=== PATIENT | male | born 1965 | race Caucasian/White ===

== ENCOUNTER 2024-11-27 13:56 | Inpatient (IN) | payer MEDICARE ==
--- NOTE | 2024-11-27 14:18 | ED ---
General Adult HPI - General Chief complaint: Psychiatric Symptoms Stated complaint: Suicidal Time Seen by Provider: 11/27/24 13:57 Source: EMS Mode of arrival: EMS Limitations: no limitations, language barrier - History of Present Illness Initial comments: Dictation was produced using [employer] dictation software. please excuse any grammatical, word or spelling errors. Chief Complaint: 59-year-old male with homicidal and suicidal ideation History of Present Illness: Patient is a 59-year-old male he is at [facility]. He was sent here by parking lot supervisor of the facility for homicidal and suicidal ideation. Patient states that he feels suicidal if he has to ever go back to [facility]. States that he is also homicidal if anybody gets in his way. Patient states he is currently at [facility] because his son put in there because he cannot take care of himself anymore. Patient Nuys any medical complaints. The ROS documented in this emergency department record has been reviewed and confirmed by me. Those systems with pertinent positive or negative responses have been documented in the HPI. All other systems are other negative and/or noncontributory. - Related Data Allergies Allergy/AdvReac Type Severity Reaction Status Date / Time infliximab Allergy Unknown Verified 11/27/24 15:19 Review of Systems ROS Statement: Those systems with pertinent positive or pertinent negative responses have been documented in the HPI. ROS Other: All systems not noted in ROS Statement are negative. Past Medical History Past Medical History: Atrial Fibrillation, Coronary Artery Disease (CAD), Heart Failure, Respiratory Disorder Past Psychological History: Depression Smoking Status: Current every day smoker Past Alcohol Use History: Abuse General Exam - General Exam Comments Initial Comments: PHYSICAL EXAM: General Impression: Alert and oriented x3, not in acute distress HEENT: Normocephalic atraumatic, extra-ocular movements intact, pupils equal and reactive to light bilaterally, mucous membranes moist. Cardiovascular: Heart regular rate and rhythm Chest: Able to complete full sentences, no retractions, no tachypnea Abdomen: abdomen soft, non-tender, non-distended, no organomegaly Musculoskeletal: Pulses present and equal in all extremities, no peripheral edema Motor: no focal deficits noted Neurological: CN II-XII grossly intact, no focal motor or sensory deficits noted Skin: Intact with no visualized rashes Psych: Normal affect and mood Limitations: no limitations, language barrier Medical Decision Making - Medical Decision Making Was pt. sent in by a medical professional or institution (, PA, BOAT FUELER, urgent care, hospital, or assisted...) When possible be specific @ -Sending by [facility] the staff physician Did you speak to anyone other than the patient for history (EMS, parent, family, police, friend...)? What history was obtained from this source @ -Above Did you review nursing and triage notes (agree or disagree)? Why? @ -I reviewed and agree with nursing and triage notes Were old charts reviewed (outside hosp., previous admission, EMS record, old EKG, old radiological studies, urgent care reports/EKG's, assisted records)? Report findings @ -No old charts were reviewed Differential Diagnosis (chest pain, altered mental status, abdominal pain women, abdominal pain men, vaginal bleeding, musculoskeletal, weakness, fever, dyspnea, syncope, headache, dizziness, GI bleed, back pain, seizure, CVA, palpatations, mental health)? @ -Differential Mental Health: Depression, anxiety, bipolar, psychosis, schizophrenia, borderline personality, situational depression, adjustment disorder, behavioral disorder, brain tumor, m alingering, substance abuse, encephalopathy, medication reaction, dementia, hypothyroidism, degenerative neurologic disorder, lupus.... This is not meant to be all-inclusive list EKG interpreted by me (3pts min.). @ -Not done X-rays interpreted by me (1pt min.). @ -None done CT interpreted by me (1pt min.). @ -None done U/S interpreted by me (1pt. min.). @ -None done What testing was considered but not performed or refused? (CT, X-rays, U/S, labs)? Why? @ -None What meds were considered but not given or refused? Why? @ -None Was smoking cessation discussed for >3mins.? @ -No Were there social determinants of health that impacted care today? How? (Homelessness, low income, unemployed, alcoholism, drug addiction, transportation, low edu. Level, literacy, decrease access to med. care, group home, rehab)? @ -No Was there de-escalation of care discussed even if they declined (Discuss DNR or withdrawal of care, Hospice)? DNR status @ -No What co-morbidities impacted this encounter? (DM, HTN, Smoking, COPD, CAD, Cancer, CVA, ARF, Chemo, Hep., AIDS, mental health diagnosis, sleep apnea, m orbid obesity)? @ -Gravely disabled Was patient admitted / discharged? Hospital course, mention meds given and route, prescriptions, significant lab abnormalities, going to OR and other pertinent info. @ -59-year-old male with history of debility and multiple comorbidities presents to the ER for suicidal ideation and homicidal ideation. Vital signs are stable. Laboratory evaluation obtained. Leukocytosis of 18.1 hemoglobin of 9.2. Patient's hemoglobin is around his baseline. Sodium level 124. Patient given IV fluids. Patient be admitted medically with consultation to psychiatry. Did you discuss the management of the patient with other professionals (professionals i.e. , PA, BOAT FUELER, lab, RT, psych nurse, social work job titles, flatcar whacker, teacher, disabilities services officer, caser shoe parts)? Give summary @ -Discussed with hospitalist for admission Was critical care preformed (if so, how long)? @ -No Undiagnosed new problem with uncertain prognosis? @ -No Drug Therapy requiring intensive monitoring for toxicity (Heparin, Nitro, Insulin, Cardizem)? @ -No Were any procedures done? @ -No Diagnosis/symptom? Acute, or Chronic, or Acute on Chronic? Uncomplicated (without systemic symptoms) or Complicated (systemic symptoms)? @ -Hyponatremia, suicidal/homicidal ideation Side effects of treatment? @ -No Exacerbation, Progression, or Severe Exacerbation? @ -No Poses a threat to life or bodily function? How? (Chest pain, USA, VT, pneumonia, PE, COPD, DKA, ARF, appy, cholecystitis, CVA, Diverticulitis, Homicidal, Suicidal, threat to staff... and all critical care pts) @ -yes - Lab Data Result diagrams: 11/27/24 14:46 11/27/24 14:46 Lab Results 11/27/24 11/27/24 Range/Units 14:46 14:46 WBC 18.1 H (3.8-10.6) k/uL RBC 4.26 L (4.30-5.90) m/uL Hgb 9.2 L (13.0-17.5) gm/dL Hct 32.3 L (39.0-53.0) % MCV 75.9 L (80.0-100.0) fL MCH 21.7 L (25.0-35.0) pg MCHC 28.6 L (31.0-37.0) g/dL RDW 19.2 H (11.5-15.5) % Plt Count 615 H (150-450) k/uL MPV 7.1 Neutrophils % 88 % Lymphocytes % 7 % Monocytes % 4 % Eosinophils % 0 % Basophils % 0 % Neutrophils # 15.9 H (1.3-7.7) k/uL Lymphocytes # 1.2 (1.0-4.8) k/uL Monocytes # 0.8 (0-1.0) k/uL Eosinophils # 0.0 (0-0.7) k/uL Basophils # 0.0 (0-0.2) k/uL Hypochromasia Marked Poikilocytosis Slight Anisocytosis Slight Microcytosis Moderate Sodium 124 L (137-145) mmol/L Potassium 4.8 (3.5-5.1) mmol/L Chloride 89 L (98-107) mmol/L Carbon Dioxide 31 H (22-30) mmol/L Anion Gap 4 mmol/L BUN 15 (9-20) mg/dL Creatinine 0.46 L (0.66-1.25) mg/dL Est GFR (CKD-EPI)AfAm >90 (>60 ml/min/1.73 sqM) Est GFR (CKD-EPI)NonAf >90 (>60 ml/min/1.73 sqM) Glucose 165 H (74-99) mg/dL Calcium 8.4 (8.4-10.2) mg/dL Disposition Clinical Impression: Suicidal ideation, Hyponatremia Disposition: ADMITTED IP TO THIS HOSP Condition: Fair Referrals: Zoya Sheets MD [Primary Care Provider] - 1-2 days Decision Time: 15:32
[2024-11-27 15:07] LABS: African American GFR (CKD) >90 (>60 ml/min/1.73 sqM); Anion Gap 4 mmol/L; Blood Urea Nitrogen 15 mg/dL (9-20); Calcium 8.4 mg/dL (8.4-10.2); Carbon Dioxide 31 mmol/L (22-30); Chloride 89 mmol/L (98-107); Glucose 165 mg/dL (74-99); Non-African American GFR(CKD) >90 (>60 ml/min/1.73 sqM); Potassium 4.8 mmol/L (3.5-5.1); Sodium 124 mmol/L (137-145)
[2024-11-27] MEDS ORDERED: NALOXONE 0.4 MG/ML 1 ML VIAL IV PRN (15:27)
[2024-11-27] MEDS: SODIUM CHLORIDE 0.9% 1,000 ML IV STA ×2 (16:09→16:38)
[2024-11-27] MEDS: HYDROcodone/APAP 5-325MG 1 EACH TAB PO PRN (16:42)
--- NOTE | 2024-11-27 16:52 | XR ---
EXAMINATION TYPE: XR chest 2V DATE OF EXAM: 11/27/2024 4:31 PM COMPARISON: None. CLINICAL INDICATION: Male, 59 years old with history of leukocytosis, TECHNIQUE: Frontal and lateral views of the chest are obtained. FINDINGS: There is patchy infiltrate right lower lobe with bilateral pleural effusions. There is pulm onary venous congestion and hazy right perihilar density. There is also cardiomegaly. Findings are li ananda reflective of congestive failure with acute pulmonary edema although infiltrates of other etiolo gy including pneumonia are not excluded. Hilar and mediastinal structures are unremarkable. IMPRESSION: Correlate with BNP for CHF. Pneumonia not excluded. Correlate clinically and progress christi dies recommended. [facility], , 11/27/2024 4:49 PM
[2024-11-27] MEDS ORDERED: ACETAMINOPHEN TAB 325 MG TAB PO PRN (20:22)
[2024-11-27] MEDS: HALOPERIDOL LACTATE 5 MG/ML 1 ML VIAL IM PRN (20:46)
[2024-11-27] MEDS: LORazepam 1 MG/0.5 ML VIAL IM PRN (20:47)
[2024-11-27] MEDS: DIVALPROEX 500 MG TABLET.DR PO SCH (20:53)
[2024-11-27] MEDS: HYDROcodone/APAP 7.5-325MG 1 EACH TAB PO PRN (20:53)
[2024-11-27] MEDS: ATORVASTATIN 40 MG TAB PO SCH (20:53)
[2024-11-27] MEDS: QUEtiapine 25 MG TAB PO SCH (20:57)
[2024-11-28] MEDS: GABAPENTIN 300 MG CAP PO SCH (06:14)
[2024-11-28] MEDS: METOPROLOL SUCCINATE (ER) 25 MG TAB.ER.24H PO SCH (06:14)
[2024-11-28] MEDS: FOLIC ACID 1 MG TAB PO SCH (06:14)
[2024-11-28] MEDS: PANTOPRAZOLE 40 MG TABLET PO SCH (08:27)
[2024-11-28] MEDS: THIAMINE 100 MG TAB PO SCH (08:27)
[2024-11-28] MEDS: CLOPIDOGREL 75 MG TAB PO SCH (08:27)
[2024-11-28] MEDS: CYANOCOBALAMIN 500 MCG TAB PO SCH (08:27)
[2024-11-28] MEDS: ASPIRIN 81 MG PO SCH (08:27)
[2024-11-28] MEDS: FERROUS SULFATE 325 MG TAB PO SCH (10:00)
[2024-11-28] MEDS: NICOTINE 21MG/24HR PATCH TRANSDERM SCH (10:00)
[2024-11-28] MEDS ORDERED: VALPROIC ACID ORAL SOLN 250 MG/5 ML CUP PO SCH (13:45)
--- NOTE | 2024-11-28 13:46 | P.CN ---
Psychiatric Consult - . Consult date: 11/28/24 Consult:: 11/28/24 12:55 IDENTIFYING DATA: This patient is a 59-year-old male coming from [facility] REASON FOR REFERRAL: Psychiatry was consulted for SI/HI HISTORY OF PRESENT ILLNESS: The patient presented [facility] the [facility], staff reported the patient has been threatening suicidal and homicidal ideations. Patient was found to have a sodium of 124, WBCs were elevated to 18.1 and absolute neutrophil count was 15.9. Patient apparently has been telling nurse and medical doctor that he just wants to go home and drink and does not care and wants discharge. Patient was seen today had a one-to-one sitter at his side. He was fairly concrete, irritable and argumentative with press writer. He was very short with his answers, claims that he does not want to return back to [facility]. States that "would rather be " claims that he has been there for about a month now and "hates it". He was not able to elaborate further was a very poor historian poor impulse control. States that he wants to be discharged back home, press writer asked what he would do and states that so I can drink is much as I can". He claims that he is feeling depressed since being in the hospital, had restraints last night and as needed medications for agitation. Patient denies any auditory, visual hallucinations and denies any paranoia or delusions. Patient became upset with press writer asking him questions and told him "get me my phone so I can get out!" And ended the interview. Patient was fairly focused on obtaining Xanax from press writer. PAST PSYCHIATRIC HISTORY: Patient has unknown psychiatric history. Patient is currently on Depakote 500 mg 3 times daily and also Seroquel 25 mg nightly. Unable to gather further psychiatric history. Past Medical History: Atrial Fibrillation, Coronary Artery Disease (CAD), Heart Failure, Respiratory Disorder Past Psychological History: Depression Smoking Status: Current every day smoker Past Alcohol Use History: Abuse ALLERGIES: as per EMR. CHEMICAL DEPENDENCY HISTORY: Patient claims that he drinks alcohol as noted above. FAMILY PSYCHIATRIC/SUBSTANCE USE HISTORY: Unable to assess SOCIAL HISTORY: Patient currently lives at [facility], unsure if he has a guardian or not. Unable to give further social history. MENTAL STATUS EXAM: General Appearance: Patient appears to be thin, laying in bed, stated age is alert, agitated, irritable. Patient appears to have fair hygiene and grooming wearing hospital gown with poor eye contact. Behavior: Agitated, demanding Speech: Patient's speech is fluent and nonpressured. Loud at times Mood/Affect: Patient reports their mood is "depressed", affect is congruent and labile Suicidality/Homicidality: Patient denies having any suicidal or homicidal ideation intent or plan. Perceptions: Patient denies any visual hallucinations and denies any auditory hallucinations Though content/process: Focused on being discharged, poor impulse control. Poverty of content Memory and concentration: Unable to assess Judgment and insight: Poor/impulsive IMPRESSIONS: Mood disorder unspecified Alcohol use disorder PLAN: -At this time patient DOES meet criteria for inpatient psychiatric admission once patient is medically cleared. -Patient DOES NOT have decision making capacity at this time and is unable to reason through and communicate/appreciate the risks, benefits and alternatives to treatment. -Delirium precautions recommended with patient including - avoiding use of narcotics and CERAMIC DESIGN ENGINEER sedatives, limit anticholinergic medications when possible, frequent re-orientation, minimize use of restraints, open window shades during the day and close them at night -Would recommend the following medication changes/additions: Increase Seroquel to 50 mg nightly for mood stabilization/sleep, continue with home dose of Depakote 500 mg 3 times daily for mood stabilization/aggression. -Continue 1:1 sitter for safety -Cannot leave AMA at this time. Patient will need a petition and certification if attempting to leave AMA. -When medically stable, patient is eligible for transfer to a psych bed when a vailable. -Communicated plan to patient's nurse -Psychiatry will sign off at this time -Please contact with any questions. 11/28/24 13:40 11/28/24 13:43
[2024-11-28] MEDS ORDERED: HYDROcodone/APAP 5-325MG 1 EACH TAB PO PRN (14:29)
[2024-11-28] MEDS ORDERED: polyethylene glycoL 3350 17 GM POWD.PACK PO PRN (14:41)
[2024-11-28] MEDS ORDERED: NITROGLYCERIN SL TABS 0.4 MG TAB SUBLINGUAL PRN (14:41)
[2024-11-28] MEDS: HYDROcodone/APAP 7.5-325MG 1 EACH TAB PO PRN (14:46)
[2024-11-28] MEDS: LORazepam 1 MG TAB PO PRN (14:47)
[2024-11-28] MEDS: predniSONE 10 MG TAB PO SCH (15:11)
[2024-11-28] MEDS: HYDROmorphone 0.5 MG/0.5 ML SYRINGE IVP PRN (15:15)
--- NOTE | 2024-11-28 16:49 | CT ---
EXAMINATION TYPE: CT brain wo con DATE OF EXAM: 11/28/2024 4:40 PM COMPARISON: None. CLINICAL INDICATION: Male, 59 years old with history of stroke, AMS. Stroke like symptoms. best image s possible due to pts kyphotic level. TECHNIQUE: Brain: Axial CT images of the brain were obtained with coronal and sagittal reformats created and rev iewed. Contrast used: None. Oral contrast used: None. CT DLP: 1328.4 mGycm, Automated exposure control for dose reduction was used. FINDINGS: Examination limited due to streak artifact. Brain: Extra-axial spaces: No abnormal extra-axial fluid collections. Ventricular system: Dilatation in proportion to cerebral atrophy. Cerebral parenchyma: No acute intraparenchymal hemorrhage or mass effect. The rebollar-white junction is well differentiated. Scattered hypoattenuating areas are seen within the white matter. Possible old infarct in the left basal ganglia region. Cerebellum: Unremarkable. Mass effect: No evidence of midline shift. Intracranial vasculature: unremarkable Soft tissues: Normal. Calvarium/osseous structures: No depressed skull fracture. Paranasal sinuses and mastoid air cells: Mild scattered paranasal sinus disease. Visualized orbits: Orbital contents are intact. IMPRESSION: No acute intracranial process. Consider MRI for further evaluation if there is persistent clinical co ncern for underlying ischemic changes. [facility], , 11/28/2024 4:47 PM
[2024-11-28] MEDS: HEPARIN SODIUM,PORCINE 5,000 UNIT/ML 1 ML VIAL SQ SCH (21:03)
[2024-11-28] MEDS: QUEtiapine 50 MG TAB PO SCH (21:04)
[2024-11-28] MEDS: SODIUM CHLORIDE 0.9% 1,000 ML IV SCH (22:16)
[2024-11-28 22:20] LABS: Influenza A Not Detected (Not Detectd); Influenza B Not Detected (Not Detectd); RSV Not Detected (Not Detectd)
--- NOTE | 2024-11-29 01:14 | HP ---
HISTORY AND PHYSICAL CHIEF COMPLAINT: Homicidal ideation, suicidal ideations, and hyponatremia. HISTORY OF PRESENT ILLNESS: This 59-year-old gentleman with a past medical history of multiple medical problems, admitted with significant homeless and suicidal ideations. The patient has severe hyponatremia. Apparently, the patient is unable to take care of himself and the patient has significant alcohol issues also. Psychiatry has seen the patient and recommended transfer once the patient is stabilized. There is no history of fever, rigors, or chills. PAST MEDICAL HISTORY: Reviewed include atrial fibrillation, CAD, CHF. The rest of the chart is also reviewed. HOME MEDICATIONS: Reviewed include Depakote, dose and rest of medications reviewed. ALLERGIES: Infliximab. FAMILY HISTORY: No history of heart disease. SOCIAL HISTORY: Alcohol abuse and smoking. REVIEW OF SYSTEMS: 14-point review is negative except mentioned earlier. PHYSICAL EXAM: VITAL SIGNS: Pulse 69, blood pressure 133/65, respirations 17. CHEST: Clear to auscultation. CARDIOVASCULAR: S1 and S2. ABDOMEN: Soft. NERVOUS SYSTEM: No focal deficit. SKIN: No ulcer, rash, bleeding. JOINTS: No active deforming arthropathy. The patient is complaining of back pain also. LABORATORY DATA: Reviewed. ASSESSMENT: 1. Severe hyponatremia possibly hypovolemic hyponatremia. 2. Suicidal and homicidal ideations. 3. History of EtOH. 4. Severe back pain and degenerative joint disease. 5. Atrial fibrillation. 6. History of coronary artery disease. 7. History of congestive heart failure. RECOMMENDATIONS AND DISCUSSION: I recommend to continue current management and treatment otherwise, I would also recommend CT of the brain to complete the workup and IV fluids 0.9. Resume the home medications. Repeat labs in the morning. Once the patient is stabilized, the patient may be transferred to psych for further evaluation and treatment. MMODL / IJN: [id number] /
[2024-11-29 04:45] LABS: Glucose,Whole Blood 108 mg/dL (70-110)
[2024-11-29] MEDS: MELOXICAM 7.5 MG TAB PO SCH (05:29)
[2024-11-29] MEDS ORDERED: NON FORMULARY DRUG (Lactose-Reduced Food [Ensure Plus] 237 ML Ml) PO SCH (09:00)
[2024-11-29] MEDS: SYMBICORT 80-4.5 MCG INHALER INHALATION SCH (09:23)
[2024-11-29] MEDS: TIOTROPIUM 2.5 MCG INHALER INHALATION SCH (09:23)
[2024-11-29 09:33] LABS: Basophils # (A) 0.03 X 10*3/uL (0.00-0.10); Basophils % (A) 0.4 %; Eosinophils # (A) 0.15 X 10*3/uL (0.04-0.35); Eosinophils % (A) 1.9 %; HCT 35.5 % (39.6-50.0); HGB 12.2 g/dL (13.0-17.0); Lymphocytes # (A) 1.56 X 10*3/uL (0.90-5.00); Lymphocytes % (A) 19.9 %; MCH 33.5 pg (27.0-32.0); MCHC 34.4 g/dL (32.0-37.0); MCV 97.5 FL (80.0-97.0); Mean Platelet Volume 10.4 FL (9.5-12.2); Monocytes # (A) 0.71 X 10*3/uL (0.20-1.00); Monocytes % (A) 9.1 %; NRBC Per 100 WBC 0 X 10*3/uL (0.00-0.01); Neutrophils # (A) 5.27 X 10*3/uL (1.80-7.70); Neutrophils % (A) 67.3 %; Platelet Count 183 X 10*3/uL (140-440); RBC 3.64 X 10*6/uL (4.40-5.60); RDW 19.5 % (11.5-14.5); WBC 7.83 X 10*3/uL (4.50-10.00)
[2024-11-29 10:18] LABS: ALT 31 U/L (10-49); AST 17 U/L (14-35); Albumin 2.9 g/dL (3.8-4.9); Albumin/Globulin Ratio 1.16 Ratio (1.60-3.17); Alkaline Phosphatase 89 U/L (41-126); BUN/Creat Ratio 33.17 Ratio (12.00-20.00); Blood Urea Nitrogen 19.9 mg/dL (9.0-27.0); Calcium 8.5 mg/dL (8.7-10.3); Carbon Dioxide 25.6 mmol/L (21.6-31.8); Chloride 102 mmol/L (96-109); Globulin 2.5 g/dL (1.6-3.3); Glucose 106 mg/dL (70-110); Potassium 4.7 mmol/L (3.5-5.5); Sodium 137 mmol/L (135-145); Total Bilirubin 0.2 mg/dL (0.3-1.2); Total Protein 5.4 g/dL (6.2-8.2)
[2024-11-29] MEDS: MULTIVITAMINS, THERA 1 EACH TAB PO SCH (12:16)
--- NOTE | 2024-11-30 01:32 | PN ---
PROGRESS NOTE DATE OF SERVICE: 11/29/2024 SUBJECTIVE: This is a 59-year-old gentleman, who was admitted with severe hyponatremia, who also had some suicidal and homicidal ideations also. The patient also had back pain and had difficulty in walking also. CT of the brain did not show any acute abnormality. PHYSICAL EXAMINATION: VITAL SIGNS: Pulse 69, blood pressure 130/70, respirations 17. CHEST: Clear to auscultation. CARDIOVASCULAR: S1 and S2. ABDOMEN: Soft. BACK: Some back pain present. LABORATORY DATA: Hemoglobin 12.2. Rest of the labs are noted. ASSESSMENT: 1. Severe hyponatremia, possible hypovolemic hyponatremia. 2. Suicidal and homicidal ideations. 3. History of EtOH. 4. Back pain and severe degenerative joint disease. 5. Atrial fibrillation. 6. Coronary artery disease. 7. History of congestive heart failure. RECOMMENDATIONS AND DISCUSSION: Recommended to continue current management and continue symptomatic treatment otherwise. Repeat labs. Continue the pain medication. Increase ambulation. Once the sodium has improved, the patient might be able to be discharged and transferred to psych floor within the next 24 hours. MMODL / IJN: [id number] /
[2024-11-30 08:40] LABS: BUN/Creat Ratio 40.67 Ratio (12.00-20.00); Blood Urea Nitrogen 24.4 mg/dL (9.0-27.0); Chloride 103 mmol/L (96-109); Glucose 110 mg/dL (70-110); Potassium 4.8 mmol/L (3.5-5.5); Sodium 137 mmol/L (135-145)
[2024-11-30 08:41] LABS: ALT 66 U/L (10-49); AST 27 U/L (14-35); Albumin 2.6 g/dL (3.8-4.9); Albumin/Globulin Ratio 1.13 Ratio (1.60-3.17); Alkaline Phosphatase 103 U/L (41-126); Calcium 8.2 mg/dL (8.7-10.3); Carbon Dioxide 27.3 mmol/L (21.6-31.8); Globulin 2.3 g/dL (1.6-3.3); Total Bilirubin 0.2 mg/dL (0.3-1.2); Total Protein 4.9 g/dL (6.2-8.2)
[2024-11-30 09:07] LABS: Basophils # (A) 0.03 X 10*3/uL (0.00-0.10); Basophils % (A) 0.4 %; Eosinophils # (A) 0.07 X 10*3/uL (0.04-0.35); HCT 33.2 % (39.6-50.0); HGB 9.9 g/dL (13.0-17.0); Lymphocytes # (A) 1.57 X 10*3/uL (0.90-5.00); Lymphocytes % (A) 21.8 %; MCH 29.1 pg (27.0-32.0); MCHC 29.8 g/dL (32.0-37.0); MCV 97.6 FL (80.0-97.0); Mean Platelet Volume 10.3 FL (9.5-12.2); Monocytes # (A) 0.72 X 10*3/uL (0.20-1.00); NRBC Per 100 WBC 0 X 10*3/uL (0.00-0.01); Neutrophils # (A) 4.73 X 10*3/uL (1.80-7.70); Neutrophils % (A) 65.6 %; Platelet Count 164 X 10*3/uL (140-440); RDW 19.1 % (11.5-14.5); WBC 7.21 X 10*3/uL (4.50-10.00)
--- NOTE | 2024-11-30 15:37 | P.DS ---
Providers Date of admission: 11/27/24 15:16 Expected date of discharge: 11/30/24 Attending physician: Nader Lundy Consults: 11/27/24 15:20 Consult Physician Routine Consulting Provider: Psychiatry - MPH Psychiatry Consult Reason/Comments: SI/HI Do you want consulting provider notified?: Yes Primary care physician: Zoya Sheets Hospital Course: Final diagnosis Severe hyponatremia, hypovolemic hyponatremia, improved Suicidal and homicidal ideations History of EtOH Severe back pain with severe degenerative joint disease History of atrial fibrillation, currently rate controlled Coronary artery disease History of congestive heart failure, not in exacerbation History of depression Continued ongoing nicotine abuse GI prophylaxis DVT prophylaxis Full code Discharge disposition Patient is being discharged in a stable condition with guarded prognosis to 3 [facility] psychiatric unit for further psychiatric care and evaluation. Patient will follow-up with Dr. Sheets in the outpatient setting upon discharge. Patient is to continue with current medications and outpatient [place] [facility] [place] scheduled. Total time taken is greater than 35 minutes. Hospital course This is a 59-year-old male who was recently admitted with severe hyponatremia also reporting some suicidal and homicidal ideations apparently per staff. Patient having difficulty in walking with back pain and significant weakness. Patient reports he was at [facility] for approximately 1 month receiving PT/OT therapy and does not want to return there. Patient reported to having some comments of wanting to hurt himself although he denies reports "I said some stupid shit and I am really sorry I did". When asking if he is suicidal or homicidal patient denies and reports he does not want to hurt himself. Patient was evaluated by psychiatry reporting he is not able to make his own sound decisions and reporting he was meeting criteria for inpatient. Patient is medically stable for transfer to 3 W. once a bed becomes available. Currently no reports of chest pain, shortness of breath, or palpitations. Patient is afebrile. No reports of nausea or vomiting and patient is tolerating diet. Patient will be going to 3 W. inpatient psychiatric unit for further evaluation. Physical exam: Gen: This is a 59-year-old male who is awake, alert and oriented x 2-3, baseline, well-developed, elderly appearing, ill-appearing HEENT: Head is atraumatic, normocephalic. Pupils equal, round. Sclerae is anicteric. NECK: Supple. No JVD. No lymphadenopathy. No thyromegaly. LUNGS: Diminished breath sounds bilaterally otherwise clear to auscultation. No wheezes or rhonchi. No intercostal retractions. HEART: S1, S2 are muffled ABDOMEN: Soft. Bowel sounds are present. No masses. No tenderness. EXTREMITIES: No pedal edema. No calf tenderness. Bilateral lower extremity swelling, chronic, extremely weak with gait dysfunction noted NEUROLOGICAL: Patient is awake, alert and oriented x 23 baseline. Cranial nerves 2 through 12 are grossly intact. Diffusely weak Please refer to medication reconciliation sheet for a list of medications. The impression and plan of care has been dictated by Carli Rosen, Nurse Practitioner as directed. Dr. Stefany MD I have performed a history and examination and MDM of this patient, discussed the same with the dictator, and agree with the dictator's assessment and plan as written ,documented as a scribe. Based on total visit time, I have performed more than 50% of the visit. Patient Condition at Discharge: Fair Plan - Discharge Summary New Discharge Prescriptions: New Nicotine 21Mg/24Hr Patch [Habitrol] 1 patch TRANSDERM DAILY patch Heparin Sodium,Porcine (1 ml) [Heparin Sodium] 5,000 unit SQ Q12HR each Multivitamins, Thera [Multivitamin (formulary)] 1 each PO DAILY@1200 tab Acetaminophen Tab [Tylenol] 650 mg PO Q6HR PRN tab PRN Reason: Fever and/ or Mild Pain haloperidoL [Haldol] 5 mg PO Q6HR PRN tab PRN Reason: Agitation QUEtiapine [SEROquel] 50 mg PO HS tab Continue Fluticasone/Umeclidin/Vilanter [Trelegy Ellipta 100-62.5-25] 1 puff INHALATION RT-DAILY@0600 Thiamine [Vitamin B-1] 100 mg PO DAILY Pantoprazole [Protonix] 40 mg PO DAILY Lactose-Reduced Food [Ensure Plus] 1 can PO DAILY Folic Acid 1 mg PO DAILY@0600 Ferrous Sulfate [Iron (65 MG Elemental)] 325 mg PO DAILY Cyanocobalamin [Vitamin B-12] 500 mcg PO DAILY Aspirin EC [Ecotrin Low Dose] 81 mg PO DAILY Divalproex Sodium [Depakote] 500 mg PO TID Atorvastatin [Lipitor] 40 mg PO HS polyethylene glycoL 3350 [Miralax] 17 gm PO DAILY PRN PRN Reason: Constipation Nitroglycerin Sl Tabs [Nitrostat] 0.4 mg SUBLINGUAL Q5M PRN PRN Reason: Chest Pain HYDROcodone/APAP 7.5-325MG [[place] 7.5-325] 1 tab PO TID PRN PRN Reason: Pain Gabapentin [Neurontin] 300 mg PO BID@0600,1700 predniSONE See Taper PO DAILY Metoprolol Succinate (ER) [Toprol XL] 25 mg PO DAILY@0600 Clopidogrel [Plavix] 75 mg PO DAILY Celecoxib [CeleBREX] 200 mg PO DAILY@0600 Discontinued HYDROcodone/APAP 7.5-325MG [[place] 7.5-325] 1 tab PO QID ALPRAZolam [Xanax] 0.25 mg PO Q12H PRN PRN Reason: Anxiety QUEtiapine [SEROquel] 25 mg PO HS Discharge Medication List Aspirin EC [Ecotrin Low Dose] 81 mg PO DAILY 11/27/24 [History] Atorvastatin [Lipitor] 40 mg PO HS 11/27/24 [History] Celecoxib [CeleBREX] 200 mg PO DAILY@0600 11/27/24 [History] Clopidogrel [Plavix] 75 mg PO DAILY 11/27/24 [History] Cyanocobalamin [Vitamin B-12] 500 mcg PO DAILY 11/27/24 [History] Divalproex Sodium [Depakote] 500 mg PO TID 11/27/24 [History] Ferrous Sulfate [Iron (65 MG Elemental)] 325 mg PO DAILY 11/27/24 [History] Fluticasone/Umeclidin/Vilanter [Trelegy Ellipta 100-62.5-25] 1 puff INHALATION RT-DAILY@0600 11/27/24 [History] Folic Acid 1 mg PO DAILY@0600 11/27/24 [History] Gabapentin [Neurontin] 300 mg PO BID@0600,1700 11/27/24 [History] HYDROcodone/APAP 7.5-325MG [[place] 7.5-325] 1 tab PO TID PRN 11/27/24 [History] Lactose-Reduced Food [Ensure Plus] 1 can PO DAILY 11/27/24 [History] Metoprolol Succinate (ER) [Toprol XL] 25 mg PO DAILY@0600 11/27/24 [History] Nitroglycerin Sl Tabs [Nitrostat] 0.4 mg SUBLINGUAL Q5M PRN 11/27/24 [History] Pantoprazole [Protonix] 40 mg PO DAILY 11/27/24 [History] Thiamine [Vitamin B-1] 100 mg PO DAILY 11/27/24 [History] polyethylene glycoL 3350 [Miralax] 17 gm PO DAILY PRN 11/27/24 [History] predniSONE See Taper PO DAILY 11/27/24 [History] Acetaminophen Tab [Tylenol] 650 mg PO Q6HR PRN tab 11/30/24 [Rx] Heparin Sodium,Porcine (1 ml) [Heparin Sodium] 5,000 unit SQ Q12HR each 11/30/24 [Rx] Multivitamins, Thera [Multivitamin (formulary)] 1 each PO DAILY@1200 tab 11/30/24 [Rx] Nicotine 21Mg/24Hr Patch [Habitrol] 1 patch TRANSDERM DAILY patch 11/30/24 [Rx] QUEtiapine [SEROquel] 50 mg PO HS tab 11/30/24 [Rx] haloperidoL [Haldol] 5 mg PO Q6HR PRN tab 11/30/24 [Rx] Follow up Appointment(s)/Referral(s): [facility], [NON-STAFF] - As Needed ([facility] will call you to schedule your in home visits. ) Zoya Sheets MD [Primary Care Provider] - 1-2 days [facility] [REFERRING] - As Needed (Call to see if you qualify for choreworker services. ) Activity/Diet/Wound Care/Special Instructions: Patient medically stable for transfer to 3 W. psych unit Follow-up with primary care provider on discharge Follow-up with mental health outpatient Arrange for outpatient services including home care Discharge Disposition: TRANSFER TO PSYCH HOSP/UNIT
[2024-12-01] MEDS ORDERED: QUEtiapine 50 MG TAB PO PRN (13:46)
--- NOTE | 2024-12-01 13:51 | P.PN ---
Progress Note - Text Progress Note Date: 12/01/24 Interval history: Patient was seen today for psychiatric follow-up. Patient was seen at the bed side today, he continues to have a one-to-one sitter. Patient was more pleasant today with life insurance underwriter, less irritability, improving attention span. He claims that he is doing better overall denies any depression or anxiety. States that he has been sleeping a bit better, appetite is improving. Claims that he wants to live for his family and also his future. He claims that he is possibly going to a different rehab. He was alert and oriented x 3 today. No aggression or agitation today. Not responding to internal stimuli. Appears to have improvement in his insight and judgment today. He was agreeable to continuing with the medications. Denying any suicidal homicidal ideations intent or plan denying any auditory or visual hallucinations. MENTAL STATUS EXAM: General Appearance: Patient appears to be thin, laying in bed, stated age is alert, more cooperative today. Patient appears to have fair hygiene and grooming wearing hospital gown with improving eye contact. Behavior: More cooperative today Speech: Patient's speech is fluent and nonpressured. Mood/Affect: Patient reports their mood is "ok", affect is congruent and improving affect Suicidality/Homicidality: Patient denies having any suicidal or homicidal ideation intent or plan. Perceptions: Patient denies any visual hallucinations and denies any auditory hallucinations Though content/process: Patient is more goal oriented, not endorsing delusions or paranoia. More future oriented today Memory and concentration: Unable to assess Judgment and insight: improving significantly IMPRESSIONS: Mood disorder unspecified Alcohol use disorder PLAN: -At this time patient DOES NOT meet criteria for inpatient psychiatric admission -Delirium precautions recommended with patient including - avoiding use of narcotics and DIE SETTER sedatives, limit anticholinergic medications when possible, frequent re-orientation, minimize use of restraints, open window shades during the day and close them at night -Would recommend the following medication changes/additions: Seroquel 50 mg scheduled nightly for mood stabilization/sleep + added daytime seroquel dose 50 mg prn for agitation, continue with home dose of Depakote 500 mg 3 times daily for mood stabilization/aggression. -Can discontinue 1:1 sitter at this time and patient is no longer endorsing suicidal homicidal ideations, improving psychiatric symptoms and improving i nsight and judgment -Communicated plan to patient's nurse -please provide outpatient mental health follow up resources -Psychiatry will sign off at this time -Please contact with any questions.
[2024-12-02] MEDS ORDERED: ZINC OXIDE PASTE (Z-GUARD) 1 APPLIC TOPICAL PRN (06:00)
--- NOTE | 2024-12-02 06:03 | P.PN ---
Subjective Progress Note Date: 12/01/24 This is a 59-year-old male who was recently admitted from [facility] with suicidal and homicidal ideations. Patient has been at [facility] for approximately a month per patient as he has been significantly weak inability to walk and currently is two-person assist per nursing staff. Awaiting updated PT/OT therapy notes. Patient reports he does not want to return to [facility] and was evaluated by psychiatry recommending inpatient psych once medically stable. Attempted to discharge to inpatient psych on 3 W. and it was reported that patient does not meet criteria and that patient may possibly need geriatric psych. Will ask psychiatry to reevaluate as patient is not reporting any suicidal or homicidal ideation and reports he says this out of context. Patient is significantly weak and would benefit from rehab for continued strength and mobility. Patient does not want to return to [facility] and per case management patient has been declined on return to [facility]. Review of systems: Constitutional: No reports of fatigue, fever, or chills Cardiovascular: No reports of chest pain or palpitations Respiratory: No reports of shortness of breath or cough GI: reports of nausea, no reports of of vomiting, : No reports of dysuria or retention Neurovascular: reports of generalized weakness, All medications have been reviewed PHYSICAL EXAMINATION: GENERAL: The patient is alert and oriented x2-3, baseline well developed, well nourished. Appears older than stated age HEENT: Pupils are round and equally reacting to light. EOMI. no scleral icterus. No conjunctival pallor. Normocephalic, atraumatic. No pharyngeal erythema. No thyromegaly. CARDIOVASCULAR: S1 and S2 muffled PULMONARY: diminished breath sounds bilaterally with no wheezing or rhonchi noted. ABDOMEN: soft. Nontender on exam. obese. non-distended, normoactive bowel sounds. No palpable organomegaly. MUSCULOSKELETAL: No joint swelling or deformity. EXTREMITIES: No cyanosis, clubbing, or pedal edema. NEUROLOGICAL: Gross neurological examination did not reveal any focal deficits. Diffuse weakness SKIN: No rashes. Assessment: Severe hyponatremia, hypovolemic hyponatremia, improved Suicidal and homicidal ideations History of EtOH Severe back pain with severe degenerative joint disease History of atrial fibrillation, currently rate controlled Coronary artery disease History of congestive heart failure, not in exacerbation History of depression Continued ongoing nicotine abuse GI prophylaxis DVT prophylaxis Full code Plan: Recommend to continue with current medications and management and was reevaluated by psychiatry and cleared the patient for discharge with outpatient follow-up with [facility] Patient continues with significant weakness and evaluated by physical therapy recommending rehab and patient is agreeable with son at the bedside. Case management following as patient is unable to return to [facility] and place referrals to multiple other facilities. Continue with appropriate home medications Encourage increase activity as tolerated and sitting up in the chair more frequently Possible discharge planning in the next 24 to 48 hours [facility] The impression and plan of care has been dictated by Carli Rosen, Nurse Practitioner as directed. Dr. Stefany MD I have performed a history and examination and MDM of this patient, discussed the same with the dictator, and agree with the dictator's assessment and plan as written ,documented as a scribe. Based on total visit time, I have performed more than 50% of the visit. Objective - Vital Signs Vital signs: Vital Signs Temp 97.3 F L 11/30/24 07:18 Pulse 71 11/30/24 07:18 Resp 18 11/30/24 07:18 BP 122/77 11/30/24 07:18 Pulse Ox 100 11/30/24 07:18 FiO2 Intake & Output 11/29/24 11/30/24 11/30/24 18:59 06:59 18:59 Intake Total 2970 Output Total 200 1125 Balance -200 1845 Intake: Oral 2970 Output: Urine 200 1125 Other: Voiding Method External Catheter # Voids 4 - Labs CBC & Chem 7: 11/30/24 03:42 11/30/24 03:42 Labs: Abnormal Lab Results - Last 24 Hours (Table) 11/29/24 11/30/24 11/30/24 Range/Units 05:42 03:42 03:42 RBC 3.40 L (4.40-5.60) X 10*6/uL Hgb 9.9 L (13.0-17.0) g/dL Hct 33.2 L (39.6-50.0) % MCV 97.6 H (80.0-97.0) FL MCHC 29.8 L (32.0-37.0) g/dL RDW 19.1 H (11.5-14.5) % Immature Gran # 0.09 H (0.00-0.04) X 10*3/uL BUN/Creatinine Ratio 33.17 H 40.67 H (12.00-20.00) Ratio Calcium 8.5 L 8.2 L (8.7-10.3) mg/dL Total Bilirubin 0.2 L 0.2 L (0.3-1.2) mg/dL ALT 66 H (10-49) U/L Total Protein 5.4 L 4.9 L (6.2-8.2) g/dL Albumin 2.9 L 2.6 L (3.8-4.9) g/dL Albumin/Globulin Ratio 1.16 L 1.13 L (1.60-3.17) Ratio Microbiology - Last 24 Hours (Table) 11/27/24 18:42 Blood Culture - Preliminary Blood
--- NOTE | 2024-12-03 06:11 | P.PN ---
Subjective Progress Note Date: 12/02/24 This is a 59-year-old male who was recently admitted from [facility] with suicidal and homicidal ideations. Patient has been at [facility] for approximately a month per patient as he has been significantly weak inability to walk and currently is two-person assist per nursing staff. Awaiting updated PT/OT therapy notes. Patient reports he does not want to return to [facility] and was evaluated by psychiatry recommending inpatient psych once medically stable. Attempted to discharge to inpatient psych on 3 [facility]. and it was reported that patient does not meet criteria and that patient may possibly need geriatric psych. Will ask psychiatry to reevaluate as patient is not reporting any suicidal or homicidal ideation and reports he says this out of context. Patient is significantly weak and would benefit from rehab for continued strength and mobility. Patient does not want to return to [facility] and per case management patient has been declined on return to [facility]. 12/02/2024 Patient is seen in follow-up today and reports to feeling well and would like to go home. Son who works is unable to care for him full-time at home and would like him to go to rehab. Patient was evaluated by physical therapy recommending rehab and patient is agreeable. Patient reevaluated by psychiatry and has signed off recommending outpatient follow-up with [facility]. Case management following working on accepting [facility] for continued PT/OT therapy. Review of systems: Constitutional: No reports of fatigue, fever, or chills Cardiovascular: No reports of chest pain or palpitations Respiratory: No reports of shortness of breath or cough GI: reports of nausea, no reports of of vomiting, : No reports of dysuria or retention Neurovascular: reports of generalized weakness, All medications have been reviewed PHYSICAL EXAMINATION: GENERAL: The patient is alert and oriented x2-3, baseline well developed, well nourished. Appears older than stated age HEENT: Pupils are round and equally reacting to light. EOMI. no scleral icterus. No conjunctival pallor. Normocephalic, atraumatic. No pharyngeal erythema. No thyromegaly. CARDIOVASCULAR: S1 and S2 muffled PULMONARY: diminished breath sounds bilaterally with no wheezing or rhonchi noted. ABDOMEN: soft. Nontender on exam. obese. non-distended, normoactive bowel sounds. No palpable organomegaly. MUSCULOSKELETAL: No joint swelling or deformity. EXTREMITIES: No cyanosis, clubbing, or pedal edema. NEUROLOGICAL: Gross neurological examination did not reveal any focal deficits. Diffuse weakness SKIN: No rashes. Assessment: Severe hyponatremia, hypovolemic hyponatremia, improved Suicidal and homicidal ideations, cleared by psychiatry History of EtOH Severe back pain with severe degenerative joint disease History of atrial fibrillation, currently rate controlled Coronary artery disease History of congestive heart failure, not in exacerbation History of depression Continued ongoing nicotine abuse GI prophylaxis DVT prophylaxis Full code Plan: Recommend to continue with current medications and management and was reevalua ben by psychiatry and cleared the patient for discharge with outpatient follow- up with [facility] Patient continues with significant weakness and evaluated by physical therapy recommending rehab and patient is agreeable with son at the bedside. Case management following as patient is unable to return to [facility]. Possible acceptance at [facility] and will require authorization Continue with appropriate home medications Encourage increase activity as tolerated and sitting up in the chair more frequently Possible discharge planning in the next 24 to 48 hours to [facility] The impression and plan of care has been dictated by Carli Rosen, Nurse Practitioner as directed. Dr. Stefany MD I have performed a history and examination and MDM of this patient, discussed the same with the dictator, and agree with the dictator's assessment and plan as written ,documented as a scribe. Based on total visit time, I have performed more than 50% of the visit. Objective - Vital Signs Vital signs: Vital Signs Temp 98.3 F 12/02/24 07:42 Pulse 74 12/02/24 07:42 Resp 18 12/02/24 07:42 BP 129/71 12/02/24 07:42 Pulse Ox 98 12/02/24 07:44 FiO2 21 12/02/24 07:44 Intake & Output 12/01/24 12/02/24 12/02/24 18:59 06:59 18:59 Output Total 2100 700 Balance -2100 -700 Output: Urine 2100 700 Other: Voiding Method External Catheter External Catheter # Voids 1 # Bowel Movements 1 - Labs CBC & Chem 7: 11/30/24 03:42 11/30/24 03:42
--- NOTE | 2024-12-03 13:49 | P.PN ---
Subjective Progress Note Date: 12/03/24 This is a 59-year-old male who was recently admitted from [facility] with suicidal and homicidal ideations. Patient has been at [facility] for approximately a month per patient as he has been significantly weak inability to walk and currently is two-person assist per nursing staff. Awaiting updated PT/OT therapy notes. Patient reports he does not want to return to [facility] and was evaluated by psychiatry recommending inpatient psych once medically stable. Attempted to discharge to inpatient psych on 3 W. and it was reported that patient does not meet criteria and that patient may possibly need geriatric psych. Will ask psychiatry to reevaluate as patient is not reporting any suicidal or homicidal ideation and reports he says this out of context. Patient is significantly weak and would benefit from rehab for continued strength and mobility. Patient does not want to return to [facility] and per case management patient has been declined on return to [facility]. 12/02/2024 Patient is seen in follow-up today and reports to feeling well and would like to go home. Son who works is unable to care for him full-time at home and would like him to go to rehab. Patient was evaluated by physical therapy recommending rehab and patient is agreeable. Patient reevaluated by psychiatry and has signed off recommending outpatient follow-up with [facility]. Case management following working on accepting ECF for continued PT/OT therapy. 12/03/2024 Patient is seen in follow-up today and continues to be significantly weak. Patient has been compliant and working with physical therapy although continues to require significant assistance with basic ADL. Patient had been at [facility] previously although was resistive to care as he felt the staff was not treating him properly and he was also upset as he wanted to go home and his son is unable to care for him. Patient is showing some minimal improvement although continues to require almost maximum assistance. Insurance denied requesting peer to peer and this was denied as well reporting he is at his baseline and for family to have him return home and/or consider long-term care. Patient is afebrile with no reports of chest pain or shortness of breath. Patient is tolerating diet. Patient is medically stable awaiting an ECF. Per case management will likely perform fast appeal. Review of systems: Constitutional: No reports of fatigue, fever, or chills Cardiovascular: No reports of chest pain or palpitations Respiratory: No reports of shortness of breath or cough GI: reports of nausea, no reports of of vomiting, : No reports of dysuria or retention Neurovascular: reports of generalized weakness, and difficulty ambulating All medications have been reviewed PHYSICAL EXAMINATION: GENERAL: The patient is alert and oriented x2-3, baseline well developed, well nourished. Appears older than stated age HEENT: Pupils are round and equally reacting to light. EOMI. no scleral icterus. No conjunctival pallor. Normocephalic, atraumatic. No pharyngeal erythema. No thyromegaly. CARDIOVASCULAR: S1 and S2 muffled PULMONARY: diminished breath sounds bilaterally with no wheezing or rhonchi noted. ABDOMEN: soft. Nontender on exam. obese. non-distended, normoactive bowel sounds. No palpable organomegaly. MUSCULOSKELETAL: No joint swelling or deformity. EXTREMITIES: No cyanosis, clubbing, or pedal edema. NEUROLOGICAL: Gross neurological examination did not reveal any focal deficits. Diffuse weakness SKIN: No rashes. Assessment: Severe hyponatremia, hypovolemic hyponatremia, improved Suicidal and homicidal ideations, cleared by psychiatry patient denies suicidal ideation or homicidal ideations. History of EtOH Severe back pain with severe degenerative joint disease History of atrial fibrillation, currently rate controlled Coronary artery disease History of congestive heart failure, not in exacerbation History of depression Continued ongoing nicotine abuse GI prophylaxis DVT prophylaxis Full code Plan: Recommend to continue with current medications and management and was reevaluated by psychiatry and cleared the patient for discharge with outpatient follow-up with [facility] Patient continues with significant weakness and evaluated by physical therapy recommending rehab and patient is agreeable with son at the bedside. Case management following as patient is unable to return to [facility]. Possible acceptance at [facility] in [place] although insurance authorization was denied requesting a peer to peer. Attempted peer to peer and was denied as patient appears to be at his baseline with not much improvement ill require authorization Continue with appropriate home medicationssince his previous stay at SNF. Patient's family to consider long-term care and/or going home with home care. Case management following and will attempt fast appeal as son is unable to care for him in the home in this condition and works full-time. Encourage increase activity as tolerated and sitting up in the chair more frequently Possible discharge planning in the next 24 to 48 hours pending on fast appeal results The impression and plan of care has been dictated by Carli Rosen, Nurse Practitioner as directed. Dr. Stefany MD I have performed a history and examination and MDM of this patient, discussed the same with the dictator, and agree with the dictator's assessment and plan as written ,documented as a scribe. Based on total visit time, I have performed more than 50% of the visit. Objective - Vital Signs Vital signs: Vital Signs Temp 98.5 F 12/03/24 07:11 Pulse 78 12/03/24 07:11 Resp 17 12/03/24 07:11 BP 147/79 12/03/24 07:11 Pulse Ox 99 12/03/24 07:11 FiO2 21 12/02/24 07:44 Intake & Output 12/02/24 12/03/24 12/03/24 18:59 06:59 18:59 Output Total 1200 1300 Balance -1200 -1300 Output: Urine 1200 1300 Other: Voiding Method External Catheter External Catheter External Catheter # Bowel Movements 1 - Labs CBC & Chem 7: 11/30/24 03:42 11/30/24 03:42 Labs: Microbiology - Last 24 Hours (Table) 11/27/24 18:42 Blood Culture - Final Blood
[2024-12-03 16:10] VITALS: BMI 28.7
[2024-12-04 06:25] LABS: African American GFR (CKD) >90 (>60 ml/min/1.73 sqM); Anion Gap 5 mmol/L; Blood Urea Nitrogen 24 mg/dL (9-20); Calcium 9.1 mg/dL (8.4-10.2); Carbon Dioxide 27 mmol/L (22-30); Chloride 102 mmol/L (98-107); Glucose 118 mg/dL (74-99); Non-African American GFR(CKD) >90 (>60 ml/min/1.73 sqM); Potassium 4.3 mmol/L (3.5-5.1); Sodium 134 mmol/L (137-145)
[2024-12-04 06:43] LABS: Anisocytosis Slight; Basophils % (A) 0 %; Eosinophils # (A) 0.1 k/uL (0-0.7); Eosinophils % (A) 1 %; HCT 36.9 % (39.0-53.0); HGB 11.3 gm/dL (13.0-17.5); Hypochromasia Slight; Lymphocytes # (A) 1.3 k/uL (1.0-4.8); Lymphocytes % (A) 22 %; MCH 29.4 pg (25.0-35.0); MCHC 30.5 g/dL (31.0-37.0); MCV 96.3 fL (80.0-100.0); Macrocytosis Slight; Mean Platelet Volume 8.4; Monocytes # (A) 0.7 k/uL (0-1.0); Monocytes % (A) 12 %; Neutrophils # (A) 3.9 k/uL (1.3-7.7); Neutrophils % (A) 64 %; Platelet Count 116 k/uL (150-450); RBC 3.83 m/uL (4.30-5.90); RDW 17.5 % (11.5-15.5); WBC 6.1 k/uL (3.8-10.6)
--- NOTE | 2024-12-04 17:31 | P.PN ---
Subjective Progress Note Date: 12/04/24 59-year-old male who was recently admitted from [facility] with suicidal and homicidal ideations. Patient has been at [facility] for approximately a month per patient as he has been significantly weak inability to walk and currently is two-person assist per nursing staff. Awaiting updated PT/OT therapy notes. Patient reports he does not want to return to [facility] and was evaluated by psychiatry recommending inpatient psych once medically stable. Attempted to discharge to inpatient psych on 3 W. and it was reported that patient does not meet criteria and that patient may possibly need geriatric psych. Will ask psychiatry to reevaluate as patient is not reporting any suicidal or homicidal ideation and reports he says this out of context. Patient is significantly weak and would benefit from rehab for continued strength and mobility. Patient does not want to return to [facility] and per case management patient has been declined on return to [facility]. --continues to be significantly weak. Patient has been compliant and working with physical therapy although continues to require significant assistance with basic ADL. Patient had been at [facility] previously although was resistive to care as he felt the staff was not treating him properly and he was also upset as he wanted to go home and his son is unable to care for him. Patient is showing some minimal improvement although continues to require almost maximum assistance. Insurance denied requesting peer to peer and this was denied as well reporting he is at his baseline and for family to have him return home and/or consider long-term care. Patient is afebrile with no reports of chest pain or shortness of breath. Patient is tolerating diet. Patient is medically stable awaiting an ECF. Per case management will likely perform fast appeal. Objective - Vital Signs Vital signs: Vital Signs Temp 97.3 F L 12/04/24 07:30 Pulse 85 12/04/24 07:30 Resp 20 12/04/24 07:30 BP 125/74 12/04/24 07:30 Pulse Ox 99 12/04/24 07:30 FiO2 21 12/02/24 07:44 Intake & Output 12/03/24 12/04/24 12/04/24 18:59 06:59 18:59 Intake Total 1650 Output Total 700 1300 Balance -700 350 Weight 90.718 kg Intake: Oral 1650 Output: Urine 700 1300 Other: Voiding Method External Catheter External Catheter External Catheter # Bowel Movements 1 2 - Exam GENERAL: The patient is alert and oriented x2-3, baseline well developed, well nourished. Appears older than stated age HEENT: Pupils are round and equally reacting to light. EOMI. no scleral icterus. No conjunctival pallor. Normocephalic, atraumatic. No pharyngeal erythema. No thyromegaly. CARDIOVASCULAR: S1 and S2 muffled PULMONARY: diminished breath sounds bilaterally with no wheezing or rhonchi noted. ABDOMEN: soft. Nontender on exam. obese. non-distended, normoactive bowel sounds. No palpable organomegaly. MUSCULOSKELETAL: No joint swelling or deformity. EXTREMITIES: No cyanosis, clubbing, or pedal edema. NEUROLOGICAL: Gross neurological examination did not reveal any focal deficits. Diffuse weakness SKIN: No rashes. - Labs CBC & Chem 7: 12/04/24 05:44 12/04/24 05:44 Labs: Abnormal Lab Results - Last 24 Hours (Table) 12/04/24 12/04/24 Range/Units 05:44 05:44 RBC 3.83 L (4.30-5.90) m/uL Hgb 11.3 L (13.0-17.5) gm/dL Hct 36.9 L (39.0-53.0) % MCHC 30.5 L (31.0-37.0) g/dL RDW 17.5 H (11.5-15.5) % Plt Count 116 L (150-450) k/uL Sodium 134 L (137-145) mmol/L BUN 24 H (9-20) mg/dL Creatinine 0.57 L (0.66-1.25) mg/dL Glucose 118 H (74-99) mg/dL Assessment and Plan Assessment: Severe hyponatremia, hypovolemic hyponatremia, improved Suicidal and homicidal ideations, cleared by psychiatry patient denies suicidal ideation or homicidal ideations. History of EtOH Severe back pain with severe degenerative joint disease History of atrial fibrillation, currently rate controlled Coronary artery disease History of congestive heart failure, not in exacerbation History of depression Continued ongoing nicotine abuse GI prophylaxis DVT prophylaxis Full code Plan: Recommend to continue with current medications and management and was reevaluated by psychiatry and cleared the patient for discharge with outpatient follow-up with [facility] Patient continues with significant weakness and evaluated by physical therapy recommending rehab and patient is agreeable with son at the bedside. Case management following as patient is unable to return to [facility]. Possible acceptance at [facility] in [place] although insurance authorization was denied requesting a peer to peer. Attempted peer to peer and was denied as patient appears to be at his baseline with not much improvement ill require authorization Continue with appropriate home medicationssince his previous stay at SNF. Patient's family to consider long-term care and/or going home with home care. Case management following and will attempt fast appeal as son is unable to care for him in the home in this condition and works full-time. Encourage increase activity as tolerated and sitting up in the chair more frequently Possible discharge planning in the next 24 to 48 hours pending on fast appeal results
--- NOTE | 2024-12-05 15:39 | P.PN ---
Subjective Progress Note Date: 12/05/24 59-year-old male who was recently admitted from [facility] with suicidal and homicidal ideations. Patient has been at [facility] for approximately a month per patient as he has been significantly weak inability to walk and currently is two-person assist per nursing staff. Awaiting updated PT/OT therapy notes. Patient reports he does not want to return to [facility] and was evaluated by psychiatry recommending inpatient psych once medically stable. Attempted to discharge to inpatient psych on 3 W. and it was reported that patient does not meet criteria and that patient may possibly need geriatric psych. Will ask psychiatry to reevaluate as patient is not reporting any suicidal or homicidal ideation and reports he says this out of context. Patient is significantly weak and would benefit from rehab for continued strength and mobility. Patient does not want to return to [facility] and per case management patient has been declined on return to [facility]. --continues to be significantly weak. Patient has been compliant and working with physical therapy although continues to require significant assistance with basic ADL. Patient had been at [facility] previously although was resistive to care as he felt the staff was not treating him properly and he was also upset as he wanted to go home and his son is unable to care for him. Patient is showing some minimal improvement although continues to require almost maximum assistance. Insurance denied requesting peer to peer and this was denied as well reporting he is at his baseline and for family to have him return home and/or consider long-term care. Patient is afebrile with no reports of chest pain or shortness of breath. Patient is tolerating diet. Patient is medically stable awaiting an ECF. Per case management will likely perform fast appeal. 12/05/2024 Patient seen and evaluated in room at bedside; resting comfortably without any specific complaints -Discussed with nursing staff; case management on board for discharge planning; await response to appeal for transfer patient to skilled rehab Objective - Vital Signs Vital signs: Vital Signs Temp 98.2 F 12/05/24 07:09 Pulse 78 12/05/24 08:50 Resp 17 12/05/24 08:50 BP 121/78 12/05/24 07:09 Pulse Ox 97 12/05/24 08:12 FiO2 21 12/02/24 07:44 Intake & Output 12/04/24 12/05/24 12/05/24 18:59 06:59 18:59 Output Total 900 700 Balance -900 -700 Output: Urine 900 700 Other: Voiding Method External Catheter External Catheter External Catheter # Bowel Movements 1 - Exam GENERAL: The patient is alert and oriented x2-3, baseline well developed, well nourished. Appears older than stated age HEENT: Pupils are round and equally reacting to light. EOMI. no scleral icterus. No conjunctival pallor. Normocephalic, atraumatic. No pharyngeal erythema. No thyromegaly. CARDIOVASCULAR: S1 and S2 muffled PULMONARY: diminished breath sounds bilaterally with no wheezing or rhonchi noted. ABDOMEN: soft. Nontender on exam. obese. non-distended, normoactive bowel sounds. No palpable organomegaly. MUSCULOSKELETAL: No joint swelling or deformity. EXTREMITIES: No cyanosis, clubbing, or pedal edema. NEUROLOGICAL: Gross neurological examination did not reveal any focal deficits. Diffuse weakness SKIN: No rashes. - Labs CBC & Chem 7: 12/04/24 05:44 12/04/24 05:44 Assessment and Plan Assessment: Severe hyponatremia, hypovolemic hyponatremia, improved Suicidal and homicidal ideations, cleared by psychiatry patient denies suicidal ideation or homicidal ideations. History of EtOH Severe back pain with severe degenerative joint disease History of atrial fibrillation, currently rate controlled Coronary artery disease History of congestive heart failure, not in exacerbation History of depression Continued ongoing nicotine abuse GI prophylaxis DVT prophylaxis Full code Plan: Recommend to continue with current medications and management and was reevaluated by psychiatry and cleared the patient for discharge with outpatient follow-up with [facility] Patient continues with significant weakness and evaluated by physical therapy recommending rehab and patient is agreeable with son at the bedside. Case cayden pittskwadwo following as patient is unable to return to [facility]. Possible acceptance at [facility] in [place] although insurance authorization was denied requesting a peer to peer. Attempted peer to peer and was denied as patient appears to be at his baseline with not much improvement ill require authorization Continue with appropriate home medicationssince his previous stay at SNF. Patient's family to consider long-term care and/or going home with home care. Case management following and will attempt fast appeal as son is unable to care for him in the home in this condition and works full-time. Encourage increase activity as tolerated and sitting up in the chair more frequently Possible discharge planning in the next 24 to 48 hours pending on fast appeal results
[2024-12-06] MEDS: haloperidoL 5 MG TAB PO PRN (18:16)
--- NOTE | 2024-12-06 18:32 | P.PN ---
Subjective Progress Note Date: 12/06/24 59-year-old male who was recently admitted from [facility] with suicidal and homicidal ideations. Patient has been at [facility] for approximately a month per patient as he has been significantly weak inability to walk and currently is two-person assist per nursing staff. Awaiting updated PT/OT therapy notes. Patient reports he does not want to return to [facility] and was evaluated by psychiatry recommending inpatient psych once medically stable. Attempted to discharge to inpatient psych on 3 W. and it was reported that patient does not meet criteria and that patient may possibly need geriatric psych. Will ask psychiatry to reevaluate as patient is not reporting any suicidal or homicidal ideation and reports he says this out of context. Patient is significantly weak and would benefit from rehab for continued strength and mobility. Patient does not want to return to [facility] and per case management patient has been declined on return to [facility]. --continues to be significantly weak. Patient has been compliant and working with physical therapy although continues to require significant assistance with basic ADL. Patient had been at [facility] previously although was resistive to care as he felt the staff was not treating him properly and he was also upset as he wanted to go home and his son is unable to care for him. Patient is showing some minimal improvement although continues to require almost maximum assistance. Insurance denied requesting peer to peer and this was denied as well reporting he is at his baseline and for family to have him return home and/or consider long-term care. Patient is afebrile with no reports of chest pain or shortness of breath. Patient is tolerating diet. Patient is medically stable awaiting an ECF. Per case management will likely perform fast appeal. 12/05/2024 Patient seen and evaluated in room at bedside; resting comfortably without any specific complaints -Discussed with nursing staff; case management on board for discharge planning; await response to appeal for transfer patient to skilled rehab 12/06/2024 Patient is seen and evaluated sitting up in bed eating lunch; reports he has be en very anxious and wants to be initiated on Xanax -Home medications are reviewed and Xanax is not on home medication list; patient remains on Ativan -- Patient is clinically stable for discharge; case management on board to try to make arrangements for discharge to skilled rehab Objective - Vital Signs Vital signs: Vital Signs Temp 98.2 F 12/06/24 06:52 Pulse 87 12/06/24 07:45 Resp 18 12/06/24 07:45 BP 135/70 12/06/24 06:52 Pulse Ox 99 12/06/24 08:37 FiO2 21 12/06/24 08:37 Intake & Output 12/05/24 12/06/24 12/06/24 18:59 06:59 18:59 Output Total 1000 1000 Balance -1000 -1000 Output: Urine 1000 1000 Other: Voiding Method External Catheter External Catheter External Catheter # Bowel Movements 1 1 - Exam GENERAL: The patient is alert and oriented x2-3, baseline well developed, well nourished. Appears older than stated age HEENT: Pupils are round and equally reacting to light. EOMI. no scleral icterus. No conjunctival pallor. Normocephalic, atraumatic. No pharyngeal erythema. No thyromegaly. CARDIOVASCULAR: S1 and S2 muffled PULMONARY: diminished breath sounds bilaterally with no wheezing or rhonchi noted. ABDOMEN: soft. Nontender on exam. obese. non-distended, normoactive bowel sounds. No palpable organomegaly. MUSCULOSKELETAL: No joint swelling or deformity. EXTREMITIES: No cyanosis, clubbing, or pedal edema. NEUROLOGICAL: Gross neurological examination did not reveal any focal deficits. Diffuse weakness SKIN: No rashes. - Labs CBC & Chem 7: 12/04/24 05:44 12/04/24 05:44 Assessment and Plan Assessment: Severe hyponatremia, hypovolemic hyponatremia, improved Suicidal and homicidal ideations, cleared by psychiatry patient denies suicidal ideation or homicidal ideations. History of EtOH Severe back pain with severe degenerative joint disease History of atrial fibrillation, currently rate controlled Coronary artery disease History of congestive heart failure, not in exacerbation History of depression Continued ongoing nicotine abuse GI prophylaxis DVT prophylaxis Full code Plan: Recommend to continue with current medications and management and was reevaluated by psychiatry and cleared the patient for discharge with outpatient follow-up with [facility] Patient continues with significant weakness and evaluated by physical therapy recommending rehab and patient is agreeable with son at the bedside. Case m anagement following as patient is unable to return to [facility]. Possible acceptance at [facility] in [place] although insurance authorization was denied requesting a peer to peer. Attempted peer to peer and was denied as patient appears to be at his baseline with not much improvement ill require authorization Continue with appropriate home medicationssince his previous stay at SNF. Callie ent's family to consider long-term care and/or going home with home care. Case management following and will attempt fast appeal as son is unable to care for him in the home in this condition and works full-time. Encourage increase activity as tolerated and sitting up in the chair more frequently Possible discharge planning in the next 24 to 48 hours pending on fast appeal results
[2024-12-07 07:37] VITALS: BP 120/68; PULSE 71; RESP 20; TEMP 97.9
--- NOTE | 2024-12-07 10:07 | P.PN ---
Subjective 59-year-old male who was recently admitted from [facility] with suicidal and homicidal ideations. Patient has been at [facility] for approximately a month per patient as he has been significantly weak inability to walk and currently is two-person assist per nursing staff. Awaiting updated PT/OT therapy notes. Patient reports he does not want to return to [facility] and was evaluated by psychiatry recommending inpatient psych once medically stable. Attempted to discharge to inpatient psych on 3 W. and it was reported that patient does not meet criteria and that patient may possibly need geriatric psych. Will ask psychiatry to reevaluate as patient is not reporting any suicidal or homicidal ideation and reports he says this out of context. Patient is significantly weak and would benefit from rehab for continued strength and mobility. Patient does not want to return to [facility] and per case management patient has been declined on return to [facility]. --continues to be significantly weak. Patient has been compliant and working with physical therapy although continues to require significant assistance with basic ADL. Patient had been at [facility] previously although was resistive to care as he felt the staff was not treating him properly and he was also upset as he wanted to go home and his son is unable to care for him. Patient is showing some minimal improvement although continues to require almost maximum assistance. Insurance denied requesting peer to peer and this was denied as well reporting he is at his baseline and for family to have him return home and/or consider long-term care. Patient is afebrile with no reports of chest pain or shortness of breath. Patient is tolerating diet. Patient is medically stable awaiting an ECF. Per case management will likely perform fast appeal. 12/05/2024 Patient seen and evaluated in room at bedside; resting comfortably without any specific complaints -Discussed with nursing staff; case management on board for discharge planning; await response to appeal for transfer patient to skilled rehab 12/06/2024 Patient is seen and evaluated sitting up in bed eating lunch; reports he has been very anxious and wants to be initiated on Xanax -Home medications are reviewed and Xanax is not on home medication list; patient remains on Ativan -- Patient is clinically stable for discharge; case management on board to try to make arrangements for discharge to skilled rehab 12/07 Left hip pain and left leg pain as reported by the patient today, we will check for x-ray and ultrasound to rule out DVT Patient states the pain is 9/10, he is getting pain medication Patient other than that is doing well and is clinically stable for discharge pending placement to subacute rehab once today workup comes back negative Objective - Vital Signs Vital signs: Vital Signs Temp 97.9 F 12/07/24 06:49 Pulse 71 12/07/24 06:49 Resp 20 12/07/24 06:49 BP 120/68 12/07/24 06:49 Pulse Ox 98 12/07/24 06:49 FiO2 21 12/06/24 08:37 Intake & Output 12/06/24 12/07/24 12/07/24 18:59 06:59 18:59 Output Total 950 700 Balance -950 -700 Output: Urine 950 700 Other: Voiding Method External Catheter External Catheter # Bowel Movements 0 1 - Exam GENERAL: The patient is alert and oriented x3, not in any acute distress. Well developed, well nourished. HEENT: Pupils are round and equally reacting to light. EOMI. No scleral icterus. No conjunctival pallor. Normocephalic, atraumatic. No pharyngeal erythema. No thyromegaly. CARDIOVASCULAR: S1 and S2 present. No murmurs, rubs, or gallops. PULMONARY: Chest is clear to auscultation, no wheezing , no crackles. ABDOMEN: Soft, nontender, nondistended, normoactive bowel sounds. No palpable organomegaly. MUSCULOSKELETAL: No joint swelling or deformity. EXTREMITIES: No cyanosis, clubbing, or pedal edema. NEUROLOGICAL: Gross neurological examination did not reveal any focal deficits. SKIN: No rashes. no petechiae. - Labs CBC & Chem 7: 12/04/24 05:44 12/04/24 05:44 Assessment and Plan Assessment: Left hip pain and left leg pain Severe hyponatremia, hypovolemic hyponatremia, improved Suicidal and homicidal ideations, cleared by psychiatry patient denies suicidal ideation or homicidal ideations. History of EtOH Severe back pain with severe degenerative joint disease History of atrial fibrillation, currently rate controlled Coronary artery disease History of congestive heart failure, not in exacerbation History of depression Continued ongoing nicotine abuse GI prophylaxis DVT prophylaxis Full code Plan: Will do x-ray of the left hip and ultrasound of the left leg. Other than that patient would be stable for discharge pending placement Recommend to continue with current medications and management and was reevaluated by psychiatry and cleared the patient for discharge with outpatient follow-up with [facility] Patient continues with significant weakness and evaluated by physical therapy recommending rehab and patient is agreeable with son at the bedside. Case management following as patient is unable to return to [facility]. Possible acc eptance at [facility] in [place] although insurance authorization was denied requesting a peer to peer. Attempted peer to peer and was denied as patient appears to be at his baseline with not much improvement ill require authorization Continue with appropriate home medicationssince his previous stay at SNF. Patient's family to consider long-term care and/or going home with home care. C ase management following and will attempt fast appeal as son is unable to care for him in the home in this condition and works full-time. Encourage increase activity as tolerated and sitting up in the chair more frequently Possible discharge planning in the next 24 to 48 hours pending on fast appeal results
--- NOTE | 2024-12-07 10:47 | US ---
EXAMINATION TYPE: US venous doppler duplex LE LT DATE OF EXAM: 12/07/2024 10:28 AM COMPARISON: NONE CLINICAL INDICATION: Male, 59 years old with history of leg pain; hip pain TECHNIQUE: The lower extremity deep venous system is examined utilizing real time linear array sonog markell with graded compression, color doppler sonography, and spectral doppler. SIDE PERFORMED: Left FINDINGS: VESSELS IMAGED: Common Femoral Vein Deep Femoral Vein Greater Saphenous Vein * Femoral Vein Popliteal Vein Small Saphenous Vein * Proximal Calf Veins (* superficial vessels) Left Leg: Negative for DVT, Color Doppler imaging shows patency of the vessels. Spectral waveforms a re within normal limits. IMPRESSION: No ultrasound evidence for deep venous thrombosis. [facility], , 12/07/2024 10:44 AM
--- NOTE | 2024-12-07 10:48 | XR ---
EXAMINATION TYPE: XR Hip Limited LT DATE OF EXAM: 12/07/2024 10:42 AM COMPARISON: None. CLINICAL INDICATION: Male, 59 years old with history of hip pain, TECHNIQUE: Single view of the left hip FINDINGS: There is no acute fracture/dislocation evident in the left hip. The joint space in the le ft hip appears moderately narrowed. The overlying soft tissue appears unremarkable. Left iliac stent. IMPRESSION: There is no acute fracture or dislocation in the left hip. [facility], , 12/07/2024 10:46 AM
== END 2024-12-07 18:47 | DRG 885 ==
LOC: EC 13:56 → 4SSUR 15:16
PROVIDERS: ADMIT Hospitalist; ATTEND Hospitalist
DX: F39 Unspecified mood [affective] disorder (principal); E87.1 Hypo-osmolality and hyponatremia; I50.9 Heart failure, unspecified; R45.850 Homicidal ideations; I48.91 Unspecified atrial fibrillation; E86.1 Hypovolemia; F10.10 Alcohol abuse, uncomplicated; F32.A Depression, unspecified; R45.851 Suicidal ideations; F17.210 Nicotine dependence, cigarettes, uncomplicated; M19.90 Unspecified osteoarthritis, unspecified site; M54.9 Dorsalgia, unspecified; M79.89 Other specified soft tissue disorders; I25.10 Atherosclerotic heart disease of native coronary artery without angina pectoris; R26.89 Other abnormalities of gait and mobility; Z74.2 Need for assistance at home and no other household member able to render care; Z75.1 Person awaiting admission to adequate facility elsewhere; Z79.899 Other long term (current) drug therapy
CPT/HCPCS: 36415; 70450; 71046; 73501; 80048; 80053; 81003; 82075; 85025; 87040; 87636; 93005; 94640; 94760; 96360; 96361; 99285